=== PATIENT | female | born 1975 | race Caucasian/White ===

== ENCOUNTER 2019-11-26 09:38 | Outpatient (CLI) | payer BC, SELFPAY ==
--- NOTE | 2019-11-26 09:49 | MM_ITS ---
WS: [id number] BILATERAL DIGITAL SCREENING MAMMOGRAPHY WITH CAD CLINICAL INFORMATION: SCREENING HISTORY: Screening mammogram. No current complaints. COMPARISON: None. TECHNIQUE: Bilateral CC and MLO views. FINDINGS: The breasts are composed of heterogeneous fibroglandular density tissue, which can limit the detectio n of small underlying mass lesions. Intramammary lymph nodes. No suspicious mass, asymmetry, calcific ations, or architectural distortion. No evidence of malignancy. MM/[place] [id number] IMPRESSION: BI-RADS: 2-Benign FOLLOW UP: 1 Year Follow-up Recommend return to annual screening mammography.
== END 2019-11-26 09:39 | disposition home or self-care (01) ==
LOC: RADSHAW 09:46
PROVIDERS: PCP Family Medicine; Visit Provider Family Medicine
DX: Z12.31 Encounter for screening mammogram for malignant neoplasm of breast (principal)
CPT/HCPCS: 77067

== ENCOUNTER → 2020-07-20 10:54 | Outpatient (BNVA) | payer BC, SELFPAY | PROVIDERS: PCP Family Medicine; Visit Provider Family Medicine | DX: R25.2 Cramp and spasm (principal); Z13.1 Encounter for screening for diabetes mellitus; R51 Headache; Z13.6 Encounter for screening for cardiovascular disorders | CPT/HCPCS: 80053; 80061; 83735 ==

== ENCOUNTER → 2020-08-24 11:59 | Outpatient (BNVA) | payer BC, SELFPAY | PROVIDERS: PCP Family Medicine; Visit Provider Family Medicine | DX: G44.89 Other headache syndrome; Z78.9 Other specified health status; R53.82 Chronic fatigue, unspecified; Z28.21 Immunization not carried out because of patient refusal; N95.1 Menopausal and female climacteric states; R25.2 Cramp and spasm | CPT/HCPCS: 82607; 82652; 83001; 83002; 83540; 84443; 85025 ==

== ENCOUNTER → 2020-09-08 18:00 | Outpatient (BNVA) | payer BC, SELFPAY | PROVIDERS: PCP Family Medicine; Visit Provider Family Medicine | DX: Z12.4 Encounter for screening for malignant neoplasm of cervix (principal); K59.00 Constipation, unspecified | CPT/HCPCS: 88175 ==